=== PATIENT | male | born 1940 | race African-American/Black ===

== ENCOUNTER 2018-04-29 13:33 | Inpatient (IN) | payer MEDICARE, MEDICAID ==
--- NOTE | 2018-04-29 13:57 | RAD ---
CHEST ONE VIEW: History: Dyspnea. Comparison: 07-05-15 FINDINGS: Cardiac silhouette is magnified by projection. Lungs remain hyperinflated. Mediastinum is midline wit h post-operative change and aortic calcification. No confluent airspace consolidation or evidence of pneumothorax. Old rib fractures. IMPRESSION: 1. Pulmonary hyperinflation, stable. 2. Atherosclerosis. 3. No active cardiopulmonary abnormalities are otherwise demonstrated. POS: MARY
[2018-04-29 14:04] LABS: #Lymphocytes 2.2 thou/uL (1.20-3.40); #Monocytes 1.6 thou/uL (0.11-0.59); #Neutrophils 9.4 thou/uL (1.40-6.50); %Eosinophils 0.1 % (0.0-10.0); %Lymphocytes 16.7 % (21.0-51.0); %Monocytes 12.3 % (0.0-10.0); %Neutrophils 70.8 % (42.0-75.0); Hemoglobin 11.2 g/dL (14.0-18.0); Mean Corpuscular HGB CONC 31.9 g/dL (32.0-36.0); Mean Corpuscular Hemoglobin 29.6 pg (27.0-31.0); Mean Corpuscular Volume 92.8 fL (78.0-98.0); Mean Platelet Volume 7.3 fL (7.4-10.4); Platelet Count 235 thou/uL (130-400); RBC Distribution Width 12.4 % (11.5-14.5); Red Blood Cell (RBC) Count 3.79 mill/uL (4.70-6.10); White Blood Cell (WBC) Count 13.3 thou/uL (4.8-10.8)
[2018-04-29] MEDS ORDERED: methylPREDNISolone Sod Succ/PF 125 MG/2 ML VIAL ONE (14:24)
[2018-04-29] MEDS ORDERED: Piperacillin/Tazobactam 4.5 GM VIAL ONE (14:26)
[2018-04-29 14:27] LABS: ALT (SGPT) 9 U/L (8-55); AST (SGOT) 16 U/L (5-34); Albumin 3.8 g/dL (3.4-4.8); Alkaline Phosphatase 94 U/L (40-150); Anion Gap 14 mmol/L (10-20); BUN (Urea Nitrogen) 55 mg/dL (8.4-25.7); Bilirubin, Total 0.6 mg/dL (0.2-1.2); Calc. Creatinine Clearance 0 mL/min (70-130); Calcium 9.5 mg/dL (7.8-10.44); Carbon Dioxide 29 mmol/L (23-31); Chloride 104 mmol/L (98-107); Estimated GFR-MDRD 40; Globulin 4.1 g/dL (2.4-3.5); Glucose 206 mg/dL (83-110); Potassium 4.7 mmol/L (3.5-5.1); Protein, Total 7.9 g/dL (5.8-8.1); Sodium 142 mmol/L (136-145)
[2018-04-29 14:49] LABS: CKMB 2.9 ng/mL (0-6.6)
[2018-04-29] MEDS ORDERED: Aspirin Chewable 81 MG TAB ONE (15:46)
[2018-04-29] MEDS ORDERED: Enoxaparin Sodium 80 MG/0.8 ML SYRINGE ONE (15:47)
[2018-04-29] MEDS ORDERED: Senokot S 8.6-50 MG TAB PO PRN (17:37)
[2018-04-29] MEDS ORDERED: Guaifenesin DM 100-10/5 ML UDCUP PO PRN (17:37)
[2018-04-29] MEDS ORDERED: Ondansetron ODT 4 MG TAB PO PRN (17:37)
[2018-04-29] MEDS ORDERED: Ondansetron PF 4 MG/2 ML Vial IVP PRN (17:37)
[2018-04-29] MEDS ORDERED: Acetaminophen 325 MG TAB PO PRN (17:37)
[2018-04-29] MEDS ORDERED: Acetaminophen 650 MG Suppository PR PRN (17:37)
[2018-04-29 17:42] LABS: CKMB 3.7 ng/mL (0-6.6)
[2018-04-29 17:51] VITALS: BMI 22.1
[2018-04-29] MEDS ORDERED: HumaLOG 300 UNITS/3 ML VIAL SC PRN ×2 (17:52)
[2018-04-29] MEDS ORDERED: Dextrose 5% in Water 1,000 ML IV PRN (17:52)
[2018-04-29] MEDS ORDERED: Dextrose 50% Abboject 50 ML SYRINGE SLOW IVP PRN (17:52)
[2018-04-29] MEDS: Sodium Chloride 0.45% 1,000 ML IV SCH (17:57)
[2018-04-29 18:15] LABS: Bilirubin Negative (Negative); Blood, Urine Negative (Negative); Clarity CLEAR (Clear); Glucose, Urine (Dipstick) Negative (Negative); Leukocyte Negative (Negative); Nitrite Negative (Negative); Protein, Urine (Dipstick) Negative (Neg-Trace); pH, Urine 7.5 (5.0-9.0)
[2018-04-29 18:18] LABS: Bacteria/HPF None Seen HPF (None Seen); Hyaline Casts/LPF 0-3 HYALINE CAST LPF (0-3 Hyaline); Pathc Cast-AUWi Flag 0.14 (0-2.49); RBC/HPF 0-3 HPF (0-3); Squamous Epithelial None Seen HPF (0-3); WBC/HPF None Seen HPF (0-3)
[2018-04-29 18:19] LABS: Urine Culture Reflex No No
[2018-04-29] MEDS: Sodium Chloride 0.9% 1,000 ML IV SCH (18:27)
--- NOTE | 2018-04-29 19:48 | HP ---
REASON FOR ADMISSION: COPD exacerbation. HISTORY OF PRESENT ILLNESS AND REVIEW OF SYSTEMS: This is a 78-year-old man, who presents with increasing shortness of breath which he states has been going on for the last week or so. The patient initially denied any medical problems, including any heart problems or pulmonary disease. He is known to have COPD, CHF, coronary artery disease, and hypertension. The patient did admit to taking multiple medications up to 10 a day, but states he is unaware with these medications are for. He states he does follow with a primary care physician regularly, but alleges he never told about his health condition. The patient admits to being short of breath at baseline with dyspnea on exertion for the last several months. More recently, he states he felt he came down with a cold and complains of sinus congestion. He has had a cough occasionally productive for yellow sputum. He states he has noted more and more difficulty breathing on exertion requiring frequent periods of rest while he walks. Denies having any fevers, chills, or sweats. Denies having any chest pain. No hemoptysis. Denies having any abdominal pain or cramping. Reports having normal bowel movements without any constipation or diarrhea. Has not noted any swelling in the lower extremities. Denies having any urinary complaints. All other review of systems is negative. On looking at previous records here, he had an echocardiogram done on April 05, 2015, at which time he was noted to have a perimembranous ventricular septal defect with the presence of a prosthetic aortic valve. 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 PAST MEDICAL HISTORY: 1. COPD. 2. Current smoker. 3. Systolic CHF. 4. Hypertension. 5. Type 2 diabetes. 6. Hyperlipidemia. 7. History of porcine aortic valve replacement. 8. Perimembranous ventricular septal defect. SOCIAL HISTORY: The patient currently smokes 5 to 6 cigarettes a day. He drinks socially approximately once a month. Denies any illicit drug use. He does not use oxygen at home and does not require any assistive devices for mobility. ALLERGIES: LISINOPRIL MEDICATIONS: 1. Amlodipine 10 mg daily. 2. Aspirin 81 mg daily. 3. Carvedilol 25 mg p.o. b.i.d. 4. Furosemide 40 mg p.o. daily. 5. Cozaar 100 mg p.o. daily. 6. Ferrous sulfate 325 mg p.o. twice daily. 7. Hydrochlorothiazide 25 mg p.o. daily. 8. Potassium chloride 20 mEq p.o. daily. 9. Ranitidine 150 mg p.o. daily. 10. Remeron 50 mg p.o. daily. 11. Sodium bicarbonate 650 mg p.o. b.i.d. PHYSICAL EXAMINATION: GENERAL: The patient is found resting on the stretcher with notable shortness of breath at rest, but able to speak in full sentences. VITAL SIGNS: Temperature 98, blood pressure 123/66, pulse 75, respirations 19, O2 saturation 99% on room air. HEENT: Normocephalic and atraumatic. Pupils are equal, round, and reactive to light. Sclerae are without icterus. Oropharynx is clear. NECK: Supple without lymphadenopathy. Full range of motion. LUNGS: Notable for diffuse expiratory wheezing. No crackles. CARDIOVASCULAR: Regular rate and rhythm without murmurs. ABDOMEN: Soft, nontender, nondistended. Normoactive, bowel sounds present. EXTREMITIES: No clubbing, cyanosis, or edema. No calf tenderness. NEUROLOGIC: Alert and oriented x3. SKIN: Without rash or jaundice. INVESTIGATIONS: ECG showed a complete right bundle-branch block with no ST changes, left axis. Similar to an initial ECG done 2 hours prior. LABORATORY DATA: White blood count 13.3, hemoglobin 11.2, hematocrit 35.2, platelets 235. Sodium 142, potassium 4.7, BUN 55, creatinine 1.99. EGFR 40. Renal function three years ago was normal. Unclear patient with known underlying renal disease and no recent laboratory studies for comparison. LFTs unremarkable. CK 356, CK-MB 2.9, troponin 0.272, second troponin 0.222. BNP 219.4. Albumin 3.8. IMAGING DATA: Chest x-ray: Chest x-ray from April 29, 2018. Pulmonary hyperinflation that appear stable when compared to June 2015. Atherosclerosis. No acute cardiopulmonary abnormalities. IMPRESSION AND PLAN: Mr. Vines is being admitted for management of the following medical conditions. 1. Chronic obstructive pulmonary disease exacerbation. White count mildly raised at 13.3. He has had a cough productive for yellow sputum. However, he is afebrile. Chest x-ray also without any evidence of pneumonia. He was given Zosyn and Levaquin in the ED. We will continue with Zosyn 750 mg q. 48 hours given reduced creatinine clearance of 36. Sputum cultures and influenza screen are pending. Continue nebs. 2. Congestive heart failure. No evidence of fluid overload at present. BNP 219.4. The patient does have persistent shortness of breath with complaints of orthopnea and dyspnea on exertion that has worsened over the last three months. No recent echocardiogram. Echocardiogram requested and consult placed for Cardiology given extensive cardiac history. 3. Acute kidney injury. Slow IV hydration. Continue to monitor. 4. GI prophylaxis. 5. Venous thromboembolism prophylaxis with Lovenox 30 mg subcutaneous daily and mechanical SCDs. 6. History of diabetes. Resume home medications and monitor glucose. The patient's case was discussed with Dr. Mendoza who agrees with plan of care as described above. Job ID: [id number]
[2018-04-29 20:38] LABS: CKMB 3.6 ng/mL (0-6.6)
[2018-04-29] MEDS ORDERED: methylPREDNISolone Sod Succ/PF 125 MG/2 ML VIAL IVP SCH (21:00)
[2018-04-29] MEDS: Piperacillin/Tazobactam 3.375 GM in Sodium Chloride 0.9% 100 ML IVPB SCH (21:03)
[2018-04-30] MEDS: Sodium Chloride 0.45% 1,000 ML IV SCH (00:16)
[2018-04-30] MEDS: Piperacillin/Tazobactam 3.375 GM in Sodium Chloride 0.9% 100 ML IVPB SCH (03:25)
[2018-04-30] MEDS: Sodium Chloride 0.9% 1,000 ML IV SCH ×2 (03:26→20:53)
[2018-04-30 06:06] LABS: #Lymphocytes 1.2 thou/uL (1.20-3.40); #Monocytes 0.3 thou/uL (0.11-0.59); #Neutrophils 10.7 thou/uL (1.40-6.50); %Basophils 0.1 % (0.0-1.0); %Lymphocytes 9.6 % (21.0-51.0); %Monocytes 2.1 % (0.0-10.0); %Neutrophils 88.2 % (42.0-75.0); Hemoglobin 10.5 g/dL (14.0-18.0); Mean Corpuscular HGB CONC 32.1 g/dL (32.0-36.0); Mean Corpuscular Hemoglobin 30.1 pg (27.0-31.0); Mean Corpuscular Volume 93.8 fL (78.0-98.0); Platelet Count 245 thou/uL (130-400); RBC Distribution Width 12.5 % (11.5-14.5); Red Blood Cell (RBC) Count 3.49 mill/uL (4.70-6.10); White Blood Cell (WBC) Count 12.1 thou/uL (4.8-10.8)
[2018-04-30 06:31] LABS: ALT (SGPT) 8 U/L (8-55); AST (SGOT) 14 U/L (5-34); Albumin 3.3 g/dL (3.4-4.8); Alkaline Phosphatase 84 U/L (40-150); Anion Gap 13 mmol/L (10-20); BUN (Urea Nitrogen) 46 mg/dL (8.4-25.7); Bilirubin, Total 0.5 mg/dL (0.2-1.2); Calc. Creatinine Clearance 40 mL/min (70-130); Calcium 9.1 mg/dL (7.8-10.44); Carbon Dioxide 25 mmol/L (23-31); Chloride 104 mmol/L (98-107); Estimated GFR-MDRD 46; Globulin 3.9 g/dL (2.4-3.5); Glucose 320 mg/dL (83-110); Potassium 3.9 mmol/L (3.5-5.1); Protein, Total 7.2 g/dL (5.8-8.1); Sodium 138 mmol/L (136-145)
[2018-04-30] MEDS: Enoxaparin Sodium 30 MG/0.3 ML SYRINGE SC SCH (08:09)
[2018-04-30] MEDS: Famotidine 20 MG TAB PO SCH (08:10)
[2018-04-30] MEDS: predniSONE 20 MG TAB PO SCH (08:10)
[2018-04-30] MEDS ORDERED: HumaLOG 300 UNITS/3 ML VIAL SC PRN (13:18)
--- NOTE | 2018-04-30 13:19 | PDOC.PN ---
- Subjective Encounter Start Date: 04/30/18 Encounter Start Time: 10:40 Pt seen for followup re: COPD exacerbation. Says he feels well, no complaints. - Objective MAR Reviewed: Yes Vital Signs & Weight: Vital Signs (12 hours) Temp Pulse Pulse Pulse Resp BP BP 04/30/18 11:13 97.7 F 71 16 04/30/18 10:47 71 16 04/30/18 10:03 77 122/64 04/30/18 09:35 73 94 112/57 L 108/56 L 04/30/18 08:09 97.4 F L 80 16 04/30/18 07:26 77 18 04/30/18 03:45 73 18 04/30/18 03:12 97.7 F 81 15 BP Pulse Ox 04/30/18 11:13 103/50 L 93 L 04/30/18 10:47 92 L 04/30/18 10:03 04/30/18 09:35 04/30/18 08:09 112/63 92 L 04/30/18 07:26 93 L 04/30/18 03:45 04/30/18 03:12 121/68 92 L Weight Weight 177 lb 9.6 oz Result Diagrams: 04/30/18 05:30 04/30/18 05:30 Additional Labs: Accuchecks 04/30/18 04/30/18 04/29/18 10:34 05:46 20:57 POC Glucose 194 H 331 H 279 H EKG Reviewed by me: Yes (Tele: NSR) Phys Exam - Physical Examination Constitutional: NAD HEENT: moist MMs, sclera anicteric, oral pharynx no lesions, 2+ tonsils Neck: no nodes, no JVD, supple, full ROM Respiratory: clear to auscultation bilateral Cardiovascular: RRR, no rub S1, S2 Gastrointestinal: soft, non-tender, no distention, positive bowel sounds Neurological: moves all 4 limbs Psychiatric: normal affect, A&O x 3 Dx/Plan (1) COPD exacerbation Code(s): J44.1 - CHRONIC OBSTRUCTIVE PULMONARY DISEASE W (ACUTE) EXACERBATION Status: Acute Comment: Improved with oxygen, steroids, bronchodilators and antibiotics. (2) HTN (hypertension) Code(s): I10 - ESSENTIAL (PRIMARY) HYPERTENSION Status: Chronic Qualifiers: Hypertension type: essential hypertension Qualified Code(s): I10 - Essential (primary) hypertension Comment: controlled (3) Cardiomyopathy Code(s): I42.9 - CARDIOMYOPATHY, UNSPECIFIED Status: Chronic Comment: echo pending (4) Diabetes type 2, uncontrolled Code(s): E11.65 - TYPE 2 DIABETES MELLITUS WITH HYPERGLYCEMIA Status: Chronic Comment: sugars high, switch ISS to moderate scale - Plan PT/OT, out of bed/ambulate * . Review of Systems - Review of Systems Constitutional: negative: fever, chills, sweats, weakness, malaise Respiratory: negative: Cough, Shortness of Breath, SOB with Excertion, Pleuritic Pain, Wheezing Cardiovascular: negative: chest pain, palpitations, orthopnea, paroxysmal nocturnal dyspnea, edema, light headedness Gastrointestinal: negative: Nausea, Vomiting, Abdominal Pain, Diarrhea, Constipation, Melena, Hematochezia Genitourinary: negative: Dysuria, Frequency, Incontinence, Hematuria, Retention Skin: negative: Rash, Lesions, Jd, Bruising - Medications/Allergies Allergies/Adverse Reactions: Allergies Allergy/AdvReac Type Severity Reaction Status Date / Time lisinopril Allergy Verified 04/29/18 17:47 catfish Allergy Intermediate Uncoded 07/05/15 13:09 Medications: Current Medications Acetaminophen (Tylenol) 650 mg PO Q4H PRN PRN Reason: Headache/Fever/Mild Pain (1-3) Acetaminophen (Tylenol) 650 mg LA Q4H PRN PRN Reason: Headache/Fever/Mild Pain (1-3) Albuterol/Ipratropium (Duoneb) 3 ml NEB [id number] [facility] Last Admin: 04/30/18 10:47 Dose: 3 ml Dextrose/Water (Dextrose 50%) 25 gm SLOW IVP PRN PRN PRN Reason: Hypoglycemia Enoxaparin Sodium (Lovenox) 30 mg SC 0900 [facility] Last Admin: 04/30/18 08:09 Dose: 30 mg Famotidine (Pepcid) 20 mg PO DAILY [facility] Last Admin: 04/30/18 08:10 Dose: 20 mg Glucagon (Glucagon) 1 mg IM PRN PRN PRN Reason: Hypoglycemia Guaifenesin/Dextromethorphan (Robitussin Dm) 15 ml PO Q4H PRN PRN Reason: Cough Last Admin: 04/30/18 08:20 Dose: 15 ml Levofloxacin 750 mg/ Device 150 mls @ 100 mls/hr IVPB Q2DAYS [facility] Sodium Chloride (Normal Saline 0.9%) 1,000 mls @ 55 mls/hr IV .[id number] [facility] Last Admin: 04/30/18 03:26 Dose: 1,000 mls Dextrose/Water (D5w) 1,000 mls @ 0 mls/hr IV .Q0M PRN PRN Reason: Hypoglycemia Influenza Virus Vacc Triv Types A&B (Fluzone High-Dose Syr) 0.5 ml IM .ONCE ONE Stop: 04/30/18 21:01 Insulin Human Lispro (Humalog) 0 units SC .BEDTIME SLIDING SC PRN PRN Reason: Bedtime Correctional Scale Insulin Human Lispro (Humalog) 0 units SC .MODERATE SLIDING SC PRN PRN Reason: Moderate Correctional Scale Ondansetron HCl (Zofran Odt) 4 mg PO Q6H PRN PRN Reason: Nausea/Vomiting Ondansetron HCl (Zofran) 4 mg IVP Q6H PRN PRN Reason: Nausea/Vomiting Pneumococcal 13-Valent Conj Vacc (Prevnar) 0.5 ml IM .ONCE ONE Stop: 04/30/18 21:01 Prednisone (Prednisone) 40 mg PO DAILY [facility] Last Admin: 04/30/18 08:10 Dose: 40 mg Senna/Docusate Sodium (Senokot S) 2 tab PO BID PRN PRN Reason: Constipation Sodium Chloride (Flush - Normal Saline) 10 ml IVF Q12HR PRN PRN Reason: Saline Flush Sodium Chloride (Flush - Normal Saline) 10 ml IVF PRN PRN PRN Reason: Saline Flush
--- NOTE | 2018-04-30 20:00 | CON ---
DATE OF CONSULTATION: 04/30/2018 CARDIOLOGY CONSULT NOTE INDICATION FOR CONSULTATION: A 78-year-old patient with a history of aortic valve replacement many years ago with a bioprosthetic valve, who was admitted due to COPD exacerbation. He has a history of COPD and apparently has some bronchitis. He apparently has been having some shortness of breath at the facility where he lives. He does have some degree of dementia. He denied any chest pain. He denied actually any shortness of breath or said even having a cough. He is not very well aware of his illnesses or his past medical history, unsure whether or not he has dementia , whether he has suffered a CVA in the past. He actually is also somewhat complicated. He denies originally most of his medical problems. He does walk with a walker and does have urinary incontinence for which he wears Depends. Otherwise, he denies any complaints at this time. He was very comfortable and pleasant. PAST MEDICAL HISTORY: Significant for that he has had a COPD exacerbation. He has had a history of porcine aortic valve replacement. He has history of VSD in the past. He has had a history of hypertension, diabetes, and hyperlipidemia. He had a history of ventricular septal defect. I do not know whether this was repaired at the time of the aortic valve or not. SOCIAL HISTORY: He continues to smoke. He smokes up to a third of a pack cigarettes a day. He denies any alcohol use. He lives in a facility, I am uncertain exactly where he lives, who he lives with, but it sounds as if he is in some type of home or either fpc situation. ALLERGIES: HE IS ALLERGIC TO LISINOPRIL. MEDICATIONS: Included: 1. Aspirin. 2. Coreg. 3. Amlodipine. 4. Furosemide. 5. Cozaar. 6. Ferrous sulfate. 7. Hydrochlorothiazide. 8. Ranitidine. 9. Potassium. 10. Remeron. 11. Sodium bicarbonate. REVIEW OF SYSTEMS: A 12-point review of systems is unreliable, but he denies any chest pain, shortness of breath, or any other problems at this time. He does have some difficulty in ambulating for which he uses a walker, but says he does not always use it. He denied any other pain or any diarrhea or constipation. No urinary problems except for he does wear a diaper, he did admit to that. PHYSICAL EXAMINATION: GENERAL: Reveals a well-developed, well-nourished, very thin gentleman, who is in no acute distress at this time. VITAL SIGNS: His blood pressure is 103/50, heart rate is 70 and regular, respiratory rate 16, he is afebrile, and O2 saturation 93%. HEENT: Shows head to be normocephalic and atraumatic. Carotid pulses are present. I do not hear any significant bruits. CHEST: Has diffuse rhonchi throughout with associated expiratory. CARDIOVASCULAR: Reveals a regular rate and rhythm at this time. There were no significant murmurs, heaves, thrills, bruits, or rubs. ABDOMEN: Soft, flat, and nontender. Positive bowel sounds are present. No organomegaly or masses are noted. EXTREMITIES: Show no clubbing, cyanosis, or edema. Femoral pulses are present. I could not palpate pedal pulses. Popliteal pulses are very difficult to palpate. SKIN: Warm and dry. NEUROLOGIC: The patient does appear to have some degree of dementia and seems to be confused at times. IMAGING DATA: Chest x-ray shows evidence of hyperinflation which is compatible with chronic COPD, but no acute episodes, no acute pneumonia or other abnormalities were noted. His EKG showed a sinus rhythm without any acute changes. IMPRESSION: 1. Chronic obstructive pulmonary disease exacerbation with bronchitis with increased cough. The patient has been started on antibiotics. We will continue to follow. 2. Some history in the past of congestive heart failure likely diastolic. There is no indication the patient has any heart failure at this time. An echocardiogram has been requested and we will review this. 3. history of aortic valve replacement. 4. History of mild coronary artery disease. He had single-vessel coronary artery disease in 2013. 5. History of some renal insufficiency, which may be due to dehydration. His creatinine was 1.99 and is decreased down to 1.77. 6. Diabetes. His blood sugars are poorly controlled at this time. We will need further adjustment of his medications. This will be dealt by the Primary Care Service. Job ID: [id number] [facility]
[2018-04-30] MEDS ORDERED: Prevnar 13-Val Conj/PF 0.5 ML SYRINGE IM ONE (21:00)
[2018-05-01 06:26] LABS: ALT (SGPT) 9 U/L (8-55); AST (SGOT) 12 U/L (5-34); Albumin 3.3 g/dL (3.4-4.8); Alkaline Phosphatase 77 U/L (40-150); Anion Gap 12 mmol/L (10-20); BUN (Urea Nitrogen) 44 mg/dL (8.4-25.7); Bilirubin, Total 0.3 mg/dL (0.2-1.2); Calc. Creatinine Clearance 48 mL/min (70-130); Calcium 9.2 mg/dL (7.8-10.44); Carbon Dioxide 25 mmol/L (23-31); Chloride 108 mmol/L (98-107); Estimated GFR-MDRD 55; Globulin 3.6 g/dL (2.4-3.5); Glucose 216 mg/dL (83-110); Potassium 3.8 mmol/L (3.5-5.1); Protein, Total 6.9 g/dL (5.8-8.1); Sodium 141 mmol/L (136-145)
[2018-05-01 06:28] LABS: Band 10 % (5-11); Hemoglobin 10.1 g/dL (14.0-18.0); Lymphocytes 5 % (21-51); MDiff Complete? YES; Mean Corpuscular Hemoglobin 30.2 pg (27.0-31.0); Mean Corpuscular Volume 91.4 fL (78.0-98.0); Mean Platelet Volume 7.6 fL (7.4-10.4); Monocytes 5 % (0-10); Neutrophil 80 % (42-75); Platelet Count 257 thou/uL (130-400); Platelet Morphology Comment Appears Adequate; RBC Distribution Width 12.4 % (11.5-14.5); Red Blood Cell (RBC) Count 3.34 mill/uL (4.70-6.10); White Blood Cell (WBC) Count 17.8 thou/uL (4.8-10.8)
[2018-05-01] MEDS: Enoxaparin Sodium 30 MG/0.3 ML SYRINGE SC SCH (09:00)
[2018-05-01] MEDS: Famotidine 20 MG TAB PO SCH (09:00)
[2018-05-01] MEDS: predniSONE 20 MG TAB PO SCH (09:01)
[2018-05-01] MEDS: HumaLOG 300 UNITS/3 ML VIAL SC PRN ×2 (11:38→16:36)
[2018-05-01] MEDS: Sodium Chloride 0.9% 1,000 ML IV SCH (16:31)
--- NOTE | 2018-05-01 17:14 | PDOC.PN ---
- Subjective Encounter Start Date: 05/01/18 Encounter Start Time: 07:40 Pt seen for followup re: COPD exacerbation. Feels well, no complaints. - Objective MAR Reviewed: Yes Vital Signs & Weight: Vital Signs (12 hours) Temp Pulse Resp BP Pulse Ox 05/01/18 16:24 98.4 F 82 15 131/65 95 05/01/18 14:05 69 18 95 05/01/18 11:08 97.6 F 73 16 133/74 95 05/01/18 10:52 72 16 95 05/01/18 07:41 97.7 F 68 16 130/60 96 05/01/18 07:25 72 16 94 L Weight Weight 177 lb 9.6 oz I&O: 04/30/18 05/01/18 05/02/18 06:59 06:59 06:59 Intake Total 1260 Output Total 1530 Balance -270 Result Diagrams: 05/01/18 05:30 05/01/18 05:30 Additional Labs: Accuchecks 05/01/18 05/01/18 05/01/18 16:07 10:59 05:16 POC Glucose 155 H 188 H 229 H 04/30/18 20:30 POC Glucose 144 H EKG Reviewed by me: Yes (Tele: NSR) Phys Exam - Physical Examination Constitutional: NAD HEENT: moist MMs Neck: supple Respiratory: wheezing present Cardiovascular: RRR Gastrointestinal: soft Neurological: moves all 4 limbs Psychiatric: normal affect Dx/Plan (1) COPD exacerbation Code(s): J44.1 - CHRONIC OBSTRUCTIVE PULMONARY DISEASE W (ACUTE) EXACERBATION Status: Acute Comment: Improved, will continue oxygen, steroids, bronchodilators and antibiotics. (2) BACILIO (acute kidney injury) Code(s): N17.9 - ACUTE KIDNEY FAILURE, UNSPECIFIED Status: Acute Comment: Creatinine improved to 1.50 today (3) HTN (hypertension) Code(s): I10 - ESSENTIAL (PRIMARY) HYPERTENSION Status: Chronic Qualifiers: Hypertension type: essential hypertension Qualified Code(s): I10 - Essential (primary) hypertension Comment: controlled (4) Diabetes type 2, uncontrolled Code(s): E11.65 - TYPE 2 DIABETES MELLITUS WITH HYPERGLYCEMIA Status: Chronic Comment: sugars high, switch ISS to aggressive scale (5) Cardiomyopathy Code(s): I42.9 - CARDIOMYOPATHY, UNSPECIFIED Status: Ruled-out Comment: LVEF 50-55% - Plan * . Review of Systems - Review of Systems Respiratory: negative: Cough, Shortness of Breath, SOB with Excertion, Pleuritic Pain, Wheezing Cardiovascular: negative: chest pain, palpitations, orthopnea, paroxysmal nocturnal dyspnea, edema, light headedness - Medications/Allergies Allergies/Adverse Reactions: Allergies Allergy/AdvReac Type Severity Reaction Status Date / Time lisinopril Allergy Verified 04/29/18 17:47 catfish Allergy Intermediate Uncoded 07/05/15 13:09 Medications: Current Medications Acetaminophen (Tylenol) 650 mg PO Q4H PRN PRN Reason: Headache/Fever/Mild Pain (1-3) Acetaminophen (Tylenol) 650 mg TN Q4H PRN PRN Reason: Headache/Fever/Mild Pain (1-3) Albuterol/Ipratropium (Duoneb) 3 ml NEB [id number] [facility] Last Admin: 05/01/18 14:05 Dose: 3 ml Dextrose/Water (Dextrose 50%) 25 gm SLOW IVP PRN PRN PRN Reason: Hypoglycemia Enoxaparin Sodium (Lovenox) 30 mg SC 0900 [facility] Last Admin: 05/01/18 09:00 Dose: 30 mg Famotidine (Pepcid) 20 mg PO DAILY [facility] Last Admin: 05/01/18 09:00 Dose: 20 mg Glucagon (Glucagon) 1 mg IM PRN PRN PRN Reason: Hypoglycemia Guaifenesin/Dextromethorphan (Robitussin Dm) 15 ml PO Q4H PRN PRN Reason: Cough Last Admin: 04/30/18 08:20 Dose: 15 ml Sodium Chloride (Normal Saline 0.9%) 1,000 mls @ 55 mls/hr IV .[id number] [facility] Last Admin: 05/01/18 16:31 Dose: 1,000 mls Dextrose/Water (D5w) 1,000 mls @ 0 mls/hr IV .Q0M PRN PRN Reason: Hypoglycemia Levofloxacin 750 mg/ Device 150 mls @ 100 mls/hr IVPB Q2D [facility] Last Admin: 05/01/18 16:31 Dose: 150 mls Insulin Human Lispro (Humalog) 0 units SC .BEDTIME SLIDING SC PRN PRN Reason: Bedtime Correctional Scale Insulin Human Lispro (Humalog) 0 units SC .AGGRESSIVE SLIDING PRN; Protocol PRN Reason: AGGRESSIVE SLIDING SCALE Last Admin: 05/01/18 16:36 Dose: 3 unit Ondansetron HCl (Zofran Odt) 4 mg PO Q6H PRN PRN Reason: Nausea/Vomiting Ondansetron HCl (Zofran) 4 mg IVP Q6H PRN PRN Reason: Nausea/Vomiting Prednisone (Prednisone) 40 mg PO DAILY [facility] Last Admin: 05/01/18 09:01 Dose: 40 mg Senna/Docusate Sodium (Senokot S) 2 tab PO BID PRN PRN Reason: Constipation Sodium Chloride (Flush - Normal Saline) 10 ml IVF Q12HR PRN PRN Reason: Saline Flush Sodium Chloride (Flush - Normal Saline) 10 ml IVF PRN PRN PRN Reason: Saline Flush
[2018-05-02] MEDS: Sodium Chloride 0.9% 1,000 ML IV SCH ×2 (02:22→11:23)
[2018-05-02] MEDS: predniSONE 20 MG TAB PO SCH (08:59)
[2018-05-02] MEDS: Famotidine 20 MG TAB PO SCH (08:59)
[2018-05-02] MEDS: Enoxaparin Sodium 30 MG/0.3 ML SYRINGE SC SCH (08:59)
[2018-05-02] MEDS: HumaLOG 300 UNITS/3 ML VIAL SC PRN (09:00)
[2018-05-02 12:21] LABS: #Basophils 0.2 thou/uL (0.0-0.2); #Monocytes 1.3 thou/uL (0.11-0.59); #Neutrophils 8.7 thou/uL (1.40-6.50); %Basophils 1.7 % (0.0-1.0); %Lymphocytes 8.7 % (21.0-51.0); %Monocytes 11.7 % (0.0-10.0); %Neutrophils 77.8 % (42.0-75.0); Hemoglobin 11.3 g/dL (14.0-18.0); Mean Corpuscular Hemoglobin 30.4 pg (27.0-31.0); Mean Platelet Volume 7.2 fL (7.4-10.4); Platelet Count 295 thou/uL (130-400); RBC Distribution Width 12.4 % (11.5-14.5); White Blood Cell (WBC) Count 11.2 thou/uL (4.8-10.8)
[2018-05-02 12:38] LABS: Anion Gap 14 mmol/L (10-20); BUN (Urea Nitrogen) 34 mg/dL (8.4-25.7); Calc. Creatinine Clearance 58 mL/min (70-130); Calcium 9.7 mg/dL (7.8-10.44); Carbon Dioxide 22 mmol/L (23-31); Chloride 112 mmol/L (98-107); Estimated GFR-MDRD 69; Glucose 111 mg/dL (83-110); Potassium 3.7 mmol/L (3.5-5.1); Sodium 144 mmol/L (136-145)
[2018-05-02 16:08] VITALS: BP 147/79; TEMP 98.3
--- NOTE | 2018-05-02 17:03 | DIS ---
DATE OF ADMISSION: 04/29/2018 DATE OF DISCHARGE: 05/02/2018 PRIMARY CARE PROVIDER: [facility] [place]. DISCHARGE DIAGNOSES: 1. Chronic obstructive pulmonary disease exacerbation. 2. Acute kidney injury. 3. Diabetes mellitus type 2, uncontrolled. CONDITION OF PATIENT ON THE DAY OF DISCHARGE: Stable. I assessed Mr. Vines on the day of discharge. He denies any chest pain or shortness of breath. Vital signs are stable. S1 and S2 are heard, regular. Lungs are clear to auscultation bilaterally. DISCHARGE MEDICATIONS: His pre-admission home medications as dictated by Ms. Walters on history and physical note dated April 29, 2018, are being resumed. In addition, he is being discharged home on oral prednisone taper, cefdinir 300 mg 2 times a day for 1 week, and glipizide 2.5 mg daily. CONSULTATIONS DURING THIS HOSPITALIZATION: Cardiology, Dr. Oliver. HOSPITAL COURSE: Mr. Vines is a pleasant 78-year-old gentleman, who was admitted to [facility] on April 29, 2018, for COPD exacerbation. Please refer to Ms. Walters's history and physical note dated April 29, 2018, for further details. He improved with oxygen, steroids, bronchodilators, and antibiotics. He was also seen by Cardiology Service. 2D echocardiogram showed left ventricular ejection fraction of 50% to 55%, E/A flow reversal, suggestive of diastolic dysfunction, mildly enlarged right ventricular cavity, normal-sized left atrium, normal-sized right atrium, mild mitral regurgitation, normally functioning bioprosthetic valve in aortic position, and mild tricuspid regurgitation. He improved clinically and is being discharged home in a stable condition. His blood sugars were high during this hospitalization. He is being started on glipizide. He is advised to check his blood sugars three times a day and shows the readings to his primary care provider. He also had acute kidney injury at the time of admission, with a creatinine of 1.99. It improved to 1.24 on the day of discharge. On the day of discharge, he has sodium 144, potassium 3.7, creatinine 1.24, white count 25775, hemoglobin 11.3, and platelet count 295,000. Preliminary blood cultures at 48 hours were negative at the time of this dictation. He is advised to follow up with his primary care provider for final blood culture report. DISCHARGE DESTINATION: [facility], from where patient was admitted to the hospital. TIME SPENT: Total amount of time spent coordinating this discharge: 33 minutes. Job ID: [id number] [facility]TD[facility]
== END 2018-05-02 17:50 | DRG 191 ==
LOC: ERS 13:33 → 2NO 15:40
PROVIDERS: ADMIT Internal Medicine; ATTEND Internal Medicine
DX: J44.1 Chronic obstructive pulmonary disease with (acute) exacerbation (principal); N17.9 Acute kidney failure, unspecified; I42.9 Cardiomyopathy, unspecified; I25.10 Atherosclerotic heart disease of native coronary artery without angina pectoris; I10 Essential (primary) hypertension; E11.65 Type 2 diabetes mellitus with hyperglycemia; E78.5 Hyperlipidemia, unspecified; F17.210 Nicotine dependence, cigarettes, uncomplicated; I08.1 Rheumatic disorders of both mitral and tricuspid valves; Z95.3 Presence of xenogenic heart valve; Z79.82 Long term (current) use of aspirin; Z79.899 Other long term (current) drug therapy
CPT/HCPCS: 36415; 36416; 71045; 80048; 80053; 81001; 82550; 82553; 83605; 83880; 84484; 85025; 87040; 87804; 93005; 93306; 94640; 96361; 96365; 96367; 96372; 96374; J1650; J1956; J2543; J2930; J7050; J7506; J7620